=== PATIENT | male | born 1970 | race Caucasian/White ===

== ENCOUNTER 2024-07-04 11:58 | Outpatient (CLI) | payer OTHER, SELFPAY ==
--- OUTSIDE RECORDS SUMMARY | 2024-07-04 12:09 | XMS_ITS | Data Portability ---
Author Organization [place] [facility] [employer], Main Office Address [address] [place] [address] Assessment No assessment recorded. Plan of Treatment Reminders Order Date Submit Date Provider Last Modified By Organization Details Last Modified Time Details Appointments None recorded. Lab lipoprotein a, qn, serum 2024 [facility], [address], [place], [address], 5 17:18:27 PSA, serum or plasma 2023 [facility], [address] [place], [address], 4 17:18:06 lipid panel, serum 2023 [facility], [address] [place], [address], 4 15:36:41 CMP, serum or plasma 2023 [facility], [address] [place], [address], 4 15:36:41 CBC w/ auto diff 2023 [facility], [address] [place], [address], 4 15:47:53 TSH, serum or plasma 2023 [facility], [address] [place], [address], 4 15:36:41 T4, free, serum 2023 024 [email or web address] [facility], [address] [place], [address], 4 16:23:15 testosteron e, free + total, serum 2023 024 [email or web address] [facility], [address] [place], [address], 4 16:32:00 T4, free, serum 2023 024 [facility], [address] [place], [address], 4 16:32:00 TSH, serum or plasma 2023 024 [facility], [address] [place], [address], 4 16:32:00 lipid panel, serum 2023 024 [email or web address] [facility], [address] [place], [address], 4 16:31:59 CMP, serum or plasma 2023 024 [email or web address] [facility], [address] [place], [address], 4 16:32:00 CBC w/ auto diff 2023 024 [email or web address] [facility], [address] [place], [address], 4 16:32:00 Referral None recorded. Procedures None recorded. Surgeries None recorded. Imaging None recorded. Medication Orders None recorded. Patient TargetsNo targets recorded. Patient Instructions Encounter Date Encounter Id Patient Instructions Last Modified By Organization Details Last Modified Time 06/08/2023 [id number] risk assessment* Not availabl e 06/08/2023 16:37:28 INFLUENZA VACCIN E Recommended today, but patient declined TD/TDAP Recommended today, patient declined Ordered P atient will get at local pharmacy/health department PNEUMONIA VACCINE Ordered Recommende d today, patient declined Patient will get at local pharmacy/health department Recomme nded at age 66 SHINGLES Ordered Recommende d today, patient declined Patient will get at local pharmacy/health department PSA COLORECTAL SCREENING No screening necessary patient is up to date DEPRESSION SCREENING Negative BMI Overweight continue your current weight loss efforts try to lose 5% of your body weight try to lose 10% of your body weight NUTRITION PHYSICAL ACTIVITY Need more exercise/physical activity ALCOHOL USE No alcohol use Occasional/Soc ial Use TOBACCO USE non smoker LUNG CANCER SCREENING Non Smoker-not indicated SEXUALLY ACTIVE HEPATITIS C SCREENING Not indicated GLUCOSE SCREENING LIPID SCREENING [email or web address] Not available 06/08/2023 16:29:53 Wellness evaluation risk assessment stable. Follow-up for hyperlipidemia, hypothyroidism and anxiety disorder all clinically stable. Will check blood work consisting of CBC, CMP, lipid, thyroid and PSA. Continue on current Rx. Will also check a testosterone level since the patient has complaints some just generalized feeling of fatigue and weakness. Follow-up in approximately six months Next Appointment: 6 Months Approximate Date: 12/05/2023 Portions of the record may have been created with voice recognition software. Occasional wrong-word or czhfc-s-prkv substitutions may have occurred due to the inherent limitations of voice recognition software. Read the chart carefully and recognize, using context, where substitutions have occurred. [email or web address] Not available 06/08/2023 16:37:11 12/06/2023 [id number] Hypothyroidism, hyperlipidemia, anxiety disorder and obesity class two all clinically stable. Will continue on current Rx check blood work consisting of CBC, CMP, lipid, thyroid and PSA. Follow-up in six months Follow Up: 6 Months Approximate Date: 06/03/2024 Portions of the record may have been created with voice recognition software. Occasional wrong-word or xkshu-g-bmbc substitutions may have occurred due to the inherent limitations of voice recognition software. Read the chart carefully and recognize, using context, where substitutions have occurred. [email or web address] Not available 12/06/2023 15:11:20 06/05/2024 [id number] Follow-up anxiet y disorder, hyperlipidemia, hypothyroidism and obesity class two all clinically stable. Had blood work on last visit which looked adequate. Thyroid was within normal limits as was the lipid panel. PSA was normal. Will continue on current Rx at this time. Will recheck back in six months. Follow Up: 6 Months Approximate Date: 12/02/2024 Portions of record are template driven. When necessary additional context will be provided. Additionally some portions have been created with voice recognition software. Occasional wrong-word or zcmok-h-zlke substitutions may have occurred due to the inherent limitations of voice recognition software. Read the chart carefully and recognize, using context, where substitutions may have occurred. Created: Rojelio Torres M.D. 06.05.2024 04:26 PM [email or web address] Not available 06/05/2024 17:26:26 Reason for Referral None Reported. Results Created Date Observation Date Name Description Value Unit Range Abnormal Flag Note LastModifiedBy Organization Detail LastModifiedTime 06/20/19 25 06/19/2024 XR, chest No observ ation record ed. [email or web address] [address], [address], 06/20/2024 09:51:46 06/21/19 25 06/20/2024 pharm acolo gic nucle ar stres s test No observ ation record ed. [email or web address] [place] [address] [address] [facility], [place], [address], 06/20/2024 15:55:15 06/21/19 25 06/20/2024 exerc ise stres s test No observ ation record ed. [address] [place] [address], [address], 06/20/2024 17:02:38 Result Notes None recorded. Problems Name Problem SNOMED Code Status Onset Date Resolution Date Notes Provider Name and Address Organization Details Recorded Time Disorder of shoulder 898865732 Active Not Available [facility] 3 13:52:48 Anxiety disorder 769592699 Active 2021 Not Available [facility] 3 13:52:48 Synovitis and tenosynovi tis 038279917 Active Not Available [facility] 3 13:52:48 Disorder of prostate 40644128 Active 2022 Not Available [facility] 3 13:52:48 Hypothyroi dism 82115420 Active 2020 Not Available [facility] 3 13:52:48 Hyperlipid emia 08711121 Active 2021 Not Available [facility] 3 13:52:48 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 Procedures Surgical History None recorded. Imaging Results Imaging Date Name Status LastModified by Organization Details LastModified Time 06/19/2024 XR, chest completed [address] [place] [address], [address], 06/20/2024 09:51:46 06/20/2024 pharmacologic nuclear stress test completed [address] [place] [address], [address], 06/20/2024 15:55:15 06/20/2024 exercise stress test completed [address], [address], 06/20/2024 17:02:38 Procedure Notes None recorded. Medical Equipment None Reported. Medications Name Sig Start Date Stop Date Status Note LastModified by Organization Details LastModified Time venlafaxine ER 150 mg capsule,ext ended release 24 hr TAKE 1 CAPSULE BY MOUTH ONCE DAILY active Not Available Not Available No t Available ciprofloxac in 500 mg tablet TAKE 1 TABLET BY MOUTH ONCE DAILY 06/07 completed Not Available Not Available Not Available levothyroxi ne 100 mcg tablet TAKE 1 TABLET BY MOUTH ONCE DAILY active Not Available Not Available No t Available simvastatin 20 mg tablet TAKE 1 TABLET BY MOUTH ONCE DAILY active Not Available Not Available No t Available aspirin 81 mg chewable tablet CHEW AND SWALLOW 1 TABLET BY MOUTH ONCE DAILY AT 8 AM active Not Available Not Available No t Available scopolamine 1 mg over 3 days transdermal patch APPLY 1 PATCH TOPICALLY EVERY 72 HOURS 06/05 completed Not Available Not Available Not Available bupropion HCl 150 mg tablet,12 hr sustained-r elease(smok ing deterrent) 09/10 completed Not Available Not Available Not Available Vitals Date Recorded Body mass index (BMI) Body height Oxygen saturation Oxygen saturation in Arterial blood by Pulse oximetry Heart rate Body temperature Body weight Systolic blood pressure Diastolic blood pressure Provider Name and Address Organization Details Last Updated DateTime 3 38.3 kg/m2 185.42 cm 98 % 98 % 74 /min 96.5 [degF] 481236. 79 g 130 mm[Hg] 80 mm[Hg] Not Available [facility] 3 13:52:25 Date Recorded Body height Body mass index (BMI) Body weight Heart rate Body temperature Oxygen saturation Oxygen saturation in Arterial blood by Pulse oximetry Systolic blood pressure Diastolic blood pressure Provider Name and Address Organization Details Last Updated DateTime 4 185.42 cm 38.3 kg/m2 739660. 79 g 89 /min 97 [degF] 96 % 96 % 122 mm[Hg] 78 mm[Hg] Zari ELKINS [facility] 4 16:24:38 Date Recorded Body height Body mass index (BMI) Body weight Heart rate Body temperature Oxygen saturation Oxygen saturation in Arterial blood by Pulse oximetry Systolic blood pressure Diastolic blood pressure Provider Name and Address Organization Details Last Updated DateTime 4 185.42 cm 38.1 kg/m2 597972. 19 g 75 /min 97 [degF] 97 % 97 % 124 mm[Hg] 80 mm[Hg] PJ Colon [facility] 4 14:57:54 Date Recorded Body height Body mass index (BMI) Body weight Heart rate Body temperature Oxygen saturation Oxygen saturation in Arterial blood by Pulse oximetry Systolic blood pressure Diastolic blood pressure Provider Name and Address Organization Details Last Updated DateTime 5 185.42 cm 38.5 kg/m2 918647. 97 g 94 /min 97 [degF] 98 % 98 % 130 mm[Hg] 68 mm[Hg] Zari Romero [facility] [employer] [facility] 5 17:18:39 Date Recorded Body height Body mass index (BMI) Body weight Heart rate Oxygen saturation Oxygen saturation in Arterial blood by Pulse oximetry Systolic blood pressure Diastolic blood pressure Provider Name and Address Organization Details Last Updated DateTime 5 185.42 cm 37.6 kg/m2 680150. 83 g 78 /min 97 % 97 % 116 mm[Hg] 74 mm[Hg] Abbie Batista CMA [facility] [employer] [facility] 5 17:01:53 Social History None recorded. Functional Status None recorded. Mental Status None recorded. Family History Nothing Reported Notes:Mother in 70' s from dementia Father 35 from complications of MS and DVT with probable pulmonary embolus. Two sisters both living one has a GI malignancy. No brothers Medical History Condition Response NERVE DISEASE N BLINDNESS N RHEUMATIC FEVER N KIDNEY STONES N BLADDER PROBLEMS N MRSA N OTHER # 1 N POLIO N LUNG DISEASE/DISORDER N HISTORY OF DRUG ABUSE N RADIATION / CHEMOTHERAPY N COPD N Other # 2 N BLOOD DISEASES N EAR OR HEARING PROBLEMS N MUMPS N SHINGLES N BOWEL PROBLEMS N DEPRESSION (INCLUDING POST ) N STROKE/TIA N ULCERS N BENIGN PROSTATIC HYPERPLASIA N MEASLES N HYPOTENSION N MYOCARDIAL INFARCTION N OBESITY N GERD/NAUSEA N ANEURYSM N URINARY/BLADDER/KIDNEY PROBLEMS N CORONARY ARTERY DISEASE (CAD) N ADDICTION CONCERNS N ENDOMETRIOSIS N Impotence N USE OF BLOOD THINNERS N SKIN PROBLEMS N GASTROINTESTINAL DISORDER N PERIPHERAL VASCULAR DISEASE N MUSCLE,JOINT OR BONE PROBLEMS N GASTROINTESTINAL BLEEDING N BLOOD CLOTS N ASTHMA N CATARACTS N ERECTILE DYSFUNCTION N VARICOSITIES N GI PROBLEMS N Low Testosterone N INFERTILITY N AIDS/HIV N CHEMOTHERAPY / RADIATION N LIVER DISEASE N MALE HYPOGONADISM N HYPERTENSION N Deficiency N TOURETTE'S N ANXIETY DISORDER Y BLOOD TRANSFUSION N ANEMIA/BLOOD DISORDER N CHRONIC EAR INFECTIONS N BRONCHITIS N TUBERCULOSIS N GLAUCOMA N FOOT PROBLEM N DIVERTICULITIS N CHICKENPOX N SLEEP APNEA N INFECTIOUS DISEASE N HEART ARRHYTHMIA N PROSTATE N INSOMNIA N HIGH CHOLESTEROL / HYPERLIPIDEMIA Y HYPERTHYROIDISM N EYE PROBLEMS N EDEMA N CHRONIC PAIN SYNDROME N HYPOTHYROIDISM Y CAROTID BLOCKAGE N CONSTIPATION N BACK / NECK PROBLEMS Y HAVE YOU BEEN HOSPITALIZED OR SEEN IN [facility] ER IN THE PAST YEAR ? N ATHEROSCLEROSIS N BREAST PROBLEMS N DIALYSIS N ECZEMA N OSTEOPOROSIS N ARTHRITIS N NO SIGNIFICANT PAST MEDICAL HISTORY N APPENDICITIS N DIABETES, TYPE N BAD TEETH N ENT N HEARTBURN / REFLUX N AUTISM SPECTRUM DISORDER (ASD) N HEPATITIS / LIVER DISEASE N GOUT N SLEEP DISORDER N ALZHEIMER'S DISEASE N Brain Problems N HERPES N DEMENTIA N HEADACHES/MIGRAINES N SEIZURES/EPILEPSY N VASCULAR DISEASE N PACEMAKER N Blood Disorder N DIZZINESS N HEART DISEASE/HEART PROBLEMS N KIDNEY DISEASE N MULTIPLE SCLEROSIS N CARDIAC ARRHYTHMIA N CANCER: SPECIFY N ATRIAL FIBRILLATION N Gall Stones N PULMONARY EMBOLISM N AUTOIMMUNE DISEASE N Past Encounters Encounter ID Performer Location Encounter Start Date Encounter Closed Date Diagnosis/Indication Diagnosis SNOMED-CT Code Diagnosis ICD10 Code Diagnosis Note [id number] Rojelio Torres MD [facility] Internal Med [place] [address] [place] [address] [place] [address] 09/10/2020 00:00:00 09/10/2020 17:18:59 [id number] Rojelio Torres MD [facility] Internal Med [place] [address] [place] [address] [place] [address] 09/09/2021 00:00:00 09/09/2021 16:01:34 [id number] Rojelio Torres MD [facility] Internal Med [place] [address] [place] [address] [place] [address] 03/10/2022 00:00:00 03/10/2022 16:37:06 [id number] Rojelio Torres MD [facility] Internal Med [place] [address] [place] [address] [place] [address] 06/08/2023 16:15:52 06/08/2023 16:42:15 Adult health examination 735256997 Z00.00 Depression screening 171 576007 Z13.31 Hyperlipidemia 76509256 E78.5 Anxiety disorder 5036958 06 F41.9 Hypothyroidism 42061172 E03.9 Testicular hypofunction 502957142 E29.1 [id number] Rojelio Torres MD [facility] Internal Med [facility] [address] [place] [address] 12/06/2023 14:51:58 12/06/2023 15:14:27 Hypothyroidism 42299243 E03.9 Hyperlipidemia 88328429 E78.5 Anxiety disorder 06 F41.9 Obese class II 608112470 1 02433 E66.812 Disorder of prostate 302 [address] N42.9 [id number] Rojelio Torres MD [facility] Primary Care [facility] [address] [facility] [address] [place] [address] 06/05/2024 17:10:49 06/05/2024 17:30:14 Anxiety disorder 886360778 F41.9 Hyperlipidemia 73595481 E78.5 Hypothyroidism 96147210 E03.9 Obese class II 757552736 1 [address]372 E66.760 [id number] Rojelio Torres MD [facility] Internal Med [address] [facility] [address] [place] [address] 07/02/2024 16:52:33 07/02/2024 17:27:34 Hyperlipidemia 90573475 E78.5 Hypothyroidism 75225350 E03.9 Atypical chest pain 1025 98642 R07.89 Health Concerns Section Related Observation LastModified by Organization Detai ls LastModified Time None Recorded Concern Status LastModified by Organization Details LastModified Time None Recorded Advance Directives Directive None Recorded Payers Encounter Date Sequence Insurance Name Policy Number Policy Reyes Covered Member ID Reyes Member ID Guarantor Name 06/08/2023 1 [employer] ([employer]DE[employer]) [id number] Alysa Yadav [id number] Ernesto Yadav 12/06/2023 1 [employer] ([employer]) [id number] Alysa Yadav [id number] Ernesto Yadav 06/05/2024 1 [employer] (INDEMN[employer]) [id number] Alysa Yadav [id number] Ernesto Yadav 07/02/2024 1 [employer] (INDMELISSA) [id number] Alysa Yadav [id number] Ernesto Yadav Notes Date Note Type Note Provider Name and Address Organization Details Recorded Time 4 text/html Patient Name: Ernesto Parikh Of Service: Sunday ( 06.08.2023 ): 1970 Age: 52 Vital Signs:Blood Pressure: Sitting Rt. Arm 122/78Pulse: Sitting 89 /min and RegularRespiratory Rate: 12Height 73 in or 1.9 mWeight 290 lb or 131.5 kgBMI 38.3Temperature: 97 F or 36.1 CPulse Oximetry: 96 % at rest on no oxygen Chief Complaint: Addressed in HPI Problems or conditions discussed in the HPI were the only ones reviewed during the encounter.Only social and family history addressed in the HPI were reviewed during this encounter. Attendant(s): NoneConstitutional and Systemic Symptoms:none Medication Reconciliation: from medication list. History of Present Illness In for a well patient check up. Last well patient evaluation was approximately one year. No interval complaints of any new major medical problems. No hx of any chest pain, shortness of breath, nausea, vomiting, diarrhea or constitutional symptoms.PSA orderedColonoscopy or Cologuard: not dueImmunizations Up To Date or refuses to takeNo Significant Change In Family HxFall Risk normalDepression Score: 0Hearing normalVisual normalReviewed Smoking and Drug HistoryReviewed Immunization HistoryInstructed on importance of weight on diabetes, heart and other diseases aggravated by obesity.Instructed on importance of weight on diabetes, heart and other diseases aggravated by obesity. #1. Type II Hypercholesterolaemia: Currently taking medication and tolerating well. No interval complaints of any muscle pain or arthralgia. No significant liver changes with medications. Last lipid panel: fair control. Therapy reviewed regarding treatment of cholesterol management and include diet. #2. Hx of hypothyroidism currently stable. Heat intolerance: no Fatigue: no Weight gain: no Difficulty concentrating: no Muscle Symptoms: none Skin Texture: normal Skin Color: normal Currently taking synthroid. #3. Anxiety Disorder: History of anxiety disorder. There has been no panic attacks. No interval complaints of any vegetative or other signs of depression. Taking Effexor Xr. Discussed possibility of decreasing and weaning off medication. Feels that current regimen is working fine and wishes not to change the current treatment regimen. Medication not causing any sedation or cognitive dysfunction and there is no contraindication to continue current therapy. #4. Hx of obesity. Currently Class 2 Obesity BMI 35-39.99. Has tried numerous dietary support and supplements with no benefit. Instructed on the health consequences of the obese status particularly cancer - diabetes and heart disease. Discussed new modalities of weight loss including GLP-1 medications that are used to treat diabetes. Potential candidate for bariatric surgery: Yes but does no wish to pursue. Wishes to be evaluated by Dietary: No and was offered to be evaluated and instructed by clinical data manager on weight loss diet. Active Medication ListZocor 20 MG (TABLET - ORAL) One DailySynthroid 0.1 MG (TABLET - ORAL) One DailyEffexor Xr 150 MG (CAPSULE, EXTENDED RELEASE - ORAL) Daily Adverse Drug Reactions ReviewedVersed Mean Social HistorySmokes 1/3 pack daily since 2006Drinks socially5 examples Construction Family HistoryMother in 70's from dementiaFather 35 from complications of MS and DVT with probable pulmonary embolus.Two sisters both living one has a GI malignancy.No brothers Rojelio Torres MD [address] [facility] [address], [place], [address], [facility] [employer] 06/08/2023 16:37:32 4 text/html Patient Name: Ernesto Parikh Of Service: November ( 12.06.2023 ): 1970 Age: 53 Vital Signs:Blood Pressure: Sitting Rt. Arm 124/80Pulse: Sitting 75 /min and RegularRespiratory Rate: 16Height 73 in or 1.9 mWeight 289 lb or 131.1 kgBMI 38.1Temperature: 97 F or 36.1 CPulse Oximetry: 97 % at rest on no oxygen Chief Complaint: Addressed in HPI Problems or conditions discussed in the HPI were the only ones reviewed during the encounter.Only social and family history addressed in the HPI were reviewed during this encounter. Attendant(s): NoneConstitutional and Systemic Symptoms:none Medication Reconciliation: from medication list. History of Present Illness #1. Hx of hypothyroidism currently stable. Heat intolerance: no Fatigue: no Weight gain: no Difficulty concentrating: no Muscle Symptoms: none Skin Texture: normal Skin Color: normal Currently taking synthroid. #2. Type II Hypercholesterolaemia: Currently taking medication and tolerating well. No interval complaints of any muscle pain or arthralgia. No significant liver changes with medications. Last lipid panel: fair control. Therapy reviewed regarding treatment of cholesterol management and include diet and Zocor. #3. Anxiety Disorder: History of anxiety disorder. There has been no panic attacks. No interval complaints of any vegetative or other signs of depression. Taking Effexor Xr. Discussed possibility of decreasing and weaning off medication. Feels that current regimen is working fine and wishes not to change the current treatment regimen. Medication not causing any sedation or cognitive dysfunction and there is no contraindication to continue current therapy. #4. Hx of obesity. Currently Class 2 Obesity BMI 35-39.99. Has tried numerous dietary support and supplements with no benefit. Instructed on the health consequences of the obese status particularly cancer - diabetes and heart disease. Discussed other modalities of weight loss no . Potential candidate for bariatric surgery: No. Wishes to be evaluated by Dietary: No and was offered to be evaluated and instructed by clinical data manager on weight loss diet. Active Medication ListZocor 20 MG (TABLET - ORAL) One DailySynthroid 0.1 MG (TABLET - ORAL) One DailyEffexor Xr 150 MG (CAPSULE, EXTENDED RELEASE - ORAL) Daily Adverse Drug Reactions ReviewedVersed Mean Social HistorySmokes 1/3 pack daily since 2006Drinks socially5 examples Construction Family HistoryMother in 70's from dementiaFather 35 from complications of MS and DVT with probable pulmonary embolus.Two sisters both living one has a GI malignancy.No brothers Rojelio Torres MD [address] [facility], [facility] [address], [place], [address], [place] [facility] [employer] 12/06/2023 15:11:38 5 text/html Patient Name: Ernesto Parikh Of Service: May ( 06.05.2024 ): 1970 Age: 53 There has been approximately a 3 lb weight gain since 12/06/2023. This represents approximately a 1.0% change in weight. Weight change attributable to lifestyle changes. Vital Signs:Blood Pressure: Sitting Rt. Arm 130/68Pulse: Sitting 04 /min and RegularRespiratory Rate: 16Height 73 in or 1.9 mWeight 292 lb or 132.4 kgBMI 38.5Temperature: 97 F or 36.1 CPulse Oximetry: 98 % at rest on no oxygen Chief Complaint: Addressed in HPI Problems or conditions discussed in the HPI were the only ones reviewed during the encounter.Only social and family history addressed in the HPI were reviewed during this encounter. Attendant(s): NoneConstitutional and Systemic Symptoms:none Medication Reconciliation: from medication list. History of Present Illness #1. Anxiety Disorder: History of anxiety disorder. There has been no panic attacks. No interval complaints of any vegetative or other signs of depression. Taking Effexor Xr. Discussed possibility of decreasing and weaning off medication. Feels that current regimen is working fine and wishes not to change the current treatment regimen. Medication not causing any sedation or cognitive dysfunction and there is no contraindication to continue current therapy. #2. Type II Hypercholesterolaemia: Currently taking medication and tolerating well. No interval complaints of any muscle pain or arthralgia. No significant liver changes with medications. Last lipid panel: fair control. Therapy reviewed regarding treatment of cholesterol management and include diet and Zocor. #3. Hx of hypothyroidism currently stable. Heat intolerance: no Fatigue: no Weight gain: no Difficulty concentrating: no Muscle Symptoms: none Skin Texture: normal Skin Color: normal Currently taking synthroid. #4. Hx of obesity. Currently Class 2 Obesity BMI 35-39.99. Has tried numerous dietary support and supplements with no benefit. Instructed on the health consequences of the obese status particularly cancer - diabetes and heart disease. Discussed other modalities of weight loss no . Potential candidate for bariatric surgery: Yes but does no wish to pursue. Wishes to be evaluated by Dietary: No and was offered to be evaluated and instructed by clinical data manager on weight loss diet. Active Medication ListZocor 20 MG (TABLET - ORAL) One DailySynthroid 0.1 MG (TABLET - ORAL) One DailyEffexor Xr 150 MG (CAPSULE, EXTENDED RELEASE - ORAL) Daily Adverse Drug Reactions ReviewedVersed Mean Social HistorySmokes 1/3 pack daily since 2006Drinks sociallyWorks Construction Family HistoryMother in 70's from dementiaFather 35 from complications of MS and DVT with probable pulmonary embolus.Two sisters both living one has a GI malignancy.No brothers Rojelio Torres MD [address] [facility], [address], [place], [address], [facility] [employer] [facility] 06/05/2024 17:26:43 5 text/html Patient Name: Ernesto Parikh Of Service: Sunday ( 07.02.2024 ): 1970 Age: 53 There has been approximately a 7 lb weight loss since 06/05/2024. This represents approximately a 2.4% change in weight. Weight change attributable to lifestyle changes. Vital Signs:Blood Pressure: Sitting Rt. Arm 116/74Pulse: Sitting 78 /min and RegularRespiratory Rate: 16Height 61 in or 1.5 mWeight 285 lb or 129.3 kgBMI 53.8 Chief Complaint: Addressed in HPI Problems or conditions discussed in the HPI were the only ones reviewed during the encounter.Only social and family history addressed in the HPI were reviewed during this encounter. Attendant(s): WifeConstitutional and Systemic Symptoms:none Medication Reconciliation: from medication list. [id number]: Pharmacological stress test normal myocardial perfusion at rest and during stress. Left ventricular ejection fraction measuring it is greater than 70%. No definite reversible or fixed perfusion defects noted. History of Present Illness #1. Several episodes of typical chest pain. The most recent which cause some hospitalization for 36 hours. At that time developed severe substernal chest pain described as like a knife going through the chest compressing his chest. Associated with diaphoresis some shortness of breath. No electrocardiographic or enzymatic changes were noted. Had a pharmacological stress test which was negative. No other systemic complaints although has a family history of cardiac problems with his father of young age from complications possibly of rheumatic heart disease and pulmonary embolism. No interval complaints of any new problems otherwise.: #2. Type II Hypercholesterolaemia: Currently taking medication and tolerating well. No interval complaints of any muscle pain or arthralgia. No significant liver changes with medications. Last lipid panel: excellent control. Therapy reviewed regarding treatment of cholesterol management and include diet and Zocor. #3. Hx of hypothyroidism currently stable. Heat intolerance: no Fatigue: no Weight gain: no Difficulty concentrating: no Muscle Symptoms: none Skin Texture: normal Skin Color: normal Currently taking synthroid. Active Medication ListZocor 20 MG (TABLET - ORAL) One DailySynthroid 0.1 MG (TABLET - ORAL) One DailyEffexor Xr 150 MG (CAPSULE, EXTENDED RELEASE - ORAL) DailyAspirin 81 mg dialy Adverse Drug Reactions ReviewedVersed Mean Social HistorySmokes 1/3 pack daily since 2006Drinks socially5 [employer] Family HistoryMother in 70's from dementiaFather 35 from complications of MS and DVT with probable pulmonary embolus.Two sisters both living one has a GI malignancy.No brothers Rojelio Torres MD [address] [facility], [facility] [address], [place], [address], [facility] [employer] [facility] 07/02/2024 17:18:11
== END 2024-07-04 11:59 | disposition home or self-care (01) ==
PROVIDERS: PCP Internal Medicine; Visit Provider Internal Medicine
DX: R07.89 Other chest pain (principal); E66.9 Obesity, unspecified; E78.5 Hyperlipidemia, unspecified; E03.9 Hypothyroidism, unspecified
CPT/HCPCS: 36415; 83695

== ENCOUNTER 2025-02-24 07:45 | Outpatient (CLI) | payer OTHER, SELFPAY ==
--- OUTSIDE RECORDS SUMMARY | 2025-02-24 07:49 | XMS_ITS | Data Portability ---
Author Organization [place] - [facility] [employer], Main Office Address [address] [place] [address] Assessment No assessment recorded. Plan of Treatment Reminders Order Date Submit Date Provider Last Modified By Organization Details Last Modified Time Details Appointments None recorded. Lab PSA, serum or plasma 2024 025 [facility], [address], [place], [address], 5 10:11:45 lipid panel, serum 2024 025 [id number] [facility], [address], [place], [address], 5 10:11:45 CMP, serum or plasma 2024 025 [facility], [address], [place], [address], 5 10:11:45 CBC w/ auto diff 2024 025 [id number] [facility], [address], [place], [address], 5 10:11:45 TSH, serum or plasma 2024 025 [id number] [facility], [address], [place], [address], 5 10:11:45 T4, free, serum 2024 025 [id number] [facility], [address], [place], [address], 5 10:11:45 lipoprotein a, qn, serum 2024 025 [facility], [address] [facility], [place], [address], 5 08:20:42 PSA, serum or plasma 2023 [facility], [address] [place], [address], 4 17:18:06 lipid panel, serum 2023 [facility], [address] [place], [address], 4 15:36:41 CMP, serum or plasma 2023 [facility], [address] [place], [address], 4 15:36:41 CBC w/ auto diff 2023 [facility], [address] [place], [address], 4 15:47:53 TSH, serum or plasma 2023 024 [facility], [address] [place], [address], 4 15:36:41 T4, free, serum [id number] Out[facility], [address] [place], [address], 4 16:23:15 testosteron e, free + total, serum [id number] [facility], [address] [place], [address], 4 16:32:00 T4, free, serum [address] Outpatient Lab, [address] [place], [address], 16:32:00 TSH, serum or plasma [id number] [place] [address] Outpatient Lab, [address] [place], [address], 16:32:00 lipid panel, serum [id number] [place] [address] Outpatient Lab, [address] [place], [address], 16:31:59 CMP, serum or plasma [id number] [place] [address] Lab, [address] [place], [address], 16:32:00 CBC w/ auto diff [id number] [place] [address] Outpatient Lab, [address] [place], [address], 16:32:00 Referral None recorded. Procedures None recorded. Surgeries None recorded. Imaging None recorded. Medication Orders None recorded. Patient TargetsNo targets recorded. Patient Instructions Encounter Date Encounter Id Patient Instructions Last Modified By Organization Details Last Modified Time 06/08/2023 [id number] risk assessment* [email or web address] Not availabl e 06/08/2023 16:37:28 INFLUENZA VACCIN E Recommended today, but patient declined TD/TDAP Patient will get at local pharmacy/health department PNEUMONIA VACCINE Recommended at age 66 SHINGLES Patient will get at local pharmacy/health department PSA recommended COLORECTAL SCREENING No screening necessary patient is up to date DEPRESSION SCREENING Negative BMI Overweight try to lose 10% of your body weight NUTRITION Eat Heart Healthy Diet PHYSICAL ACTIVITY Need more exercise/physical activity ALCOHOL USE Occasional/Social Use TOBACCO USE non smoker LUNG CANCER SCREENING Non Smoker-not indicated SEXUALLY ACTIVE HEPATITIS C SCREENING Not indicated GLUCOSE SCREENING recommended LIPID SCREENING recommended [email or web address] Not available 06/08/2023 16:29:53 Wellness evaluation risk [...] with voice recognition software. Occasional wrong-word or s ound-a-like substitutions may have occurred due to the inherent limitations of voice recognition software. Read the chart carefully and recognize, using context, where substitutions have occurred. [email or web address] Not available 06/08/2023 16:37:11 12/06/2023 [id number] Hypothyroidism, hyperlipidemia, anxiety disorder and obesity class two all clinically stable. Will continue on current Rx check blood work consisting of CBC, CMP, lipid, thyroid and PSA. Follow-up in six months Follow Up: 6 Months Approximate Date: 06/03/2024 Portions of the record may have been created with voice recognition software. Occasional wrong-word or s ound-a-like substitutions may have occurred due to the inherent limitations of voice recognition software. Read the chart carefully and recognize, using context, where substitutions have occurred. [email or web address] Not available 12/06/2023 15:11:20 06/05/2024 [id number] Follow-up anxiet y disorder, hyperlipidemia, hypothyroidism and [...] with voice recognition software. Occasional wrong-word or s ound-a-like substitutions may have occurred due to the inherent limitations of voice recognition software. Read the chart carefully and recognize, using context, where substitutions may have occurred. Created: Rojelio Torres M.D. 06.05.2024 04:26 PM [email or web address] Not available 06/05/2024 17:26:26 Reason for Referral None Reported. Results Created Date Observation Date Name Description Value Unit Range Abnormal Flag Note LastModifiedBy Organization Detail LastModifiedTime 06/20/19 25 06/19/2024 XR, chest No observ ation record ed. [address], [place], [address], 06/20/2024 09:51:46 06/21/19 25 06/20/2024 pharm acolo gic nucle ar stres s test No observ ation record ed. [address], [place], [address], 06/20/2024 15:55:15 06/21/19 25 06/20/2024 exerc ise stres s test No observ ation record ed. [address], [place], [address], 06/20/2024 17:02:38 08/08/19 25 08/07/2024 US, echoc ardio gram, trans thora cic, compl ete, w/ color flow No observ ation record ed. [address], [place], [address], 08/07/2024 14:27:10 Result Notes None recorded. Problems Name Problem SNOMED Code Status Onset Date Resolution Date Notes Provider Name and Address Organization Details Recorded Time Disorder of shoulder 504684432 Active Not Available [facility] 3 13:52:48 Synovitis and tenosynovi tis 055254301 Active Not Available [facility] 3 13:52:48 Hypothyroi dism 95184510 Active 2020 Not Available [facility] 3 13:52:48 Anxiety disorder 385565935 Active 2021 Not Available [facility] 3 13:52:48 Hyperlipid emia 24816621 Active 2021 Not Available [facility] 3 13:52:48 Disorder of prostate 55433913 Active 2022 Not Available [facility] 3 13:52:48 Testicular hypofuncti on 548095967 Active 2023 Rojelio Torres MD [address], [place], [address] , [facility] 4 16:36:58 Motion sickness 20562067 Active 2023 Rojelio Torres MD [address], [address], [place], [address] , [facility] 4 12:30:44 Atypical chest pain 038089676 Active 2024 Rojelio Torres MD [address], [place], [address] , [facility] 5 17:11:19 Obstructiv e sleep apnea syndrome 72215154 Active 2024 Micki salazar, [facility] 5 11:41:57 Chronic back pain 033563679 Active 2024 Rojelio Torres MD [address], [address], [place], [address] , [facility] 5 17:35:38 Obese class I 1899041761998 07 Active 2024 Rojelio Torres MD [address], [place], [address] , [facility] 5 17:37:19 Obese class III 648103180 Active 2024 Rojelio Torres MD [address], [place], [address] , [facility] 5 17:37:33 Chronic pain 93572223 Active 2024 Micki salazar, [facility] 5 14:44:43 Problem Notes None recorded. Medical Equipment None Reported. [...] Not Available levothyroxi ne 100 mcg tablet Take 1 tablet by mouth once daily 2024 active Not Available Not Available Not Avai lable simvastatin 20 mg tablet Take 1 tablet by mouth once daily 2024 active Not Available Not Available Not Avai lable aspirin 81 mg chewable tablet CHEW AND [...] Available Not Available Vitals Date Recorded Body height Body mass index (BMI) Body weight Heart rate Body temperature Oxygen saturation Systolic And Diastolic Provider Name and Address Organization Details Last Updated DateTime 5 185.42 cm 38.5 kg/m2 991200. 97 g 94 /min 97 [degF] 98 % 130/68 mm[Hg] [facility] [employer] [facility] 5 17:18:39 Date Recorded Body height Body mass index (BMI) Body weight Heart rate Body temperature Oxygen saturation Systolic And Diastolic Provider Name and Address Organization Details Last Updated DateTime 4 185.42 cm 38.3 kg/m2 264314. 79 g 89 /min 97 [degF] 96 % 122/78 mm[Hg] Zari Dao [employer] [facility] [employer] [facility] 4 16:24:38 Date Recorded Body height Body mass index (BMI) Body weight Heart rate Oxygen saturation Systolic And Diastolic Provider Name and Address Organization Details Last Updated DateTime 5 185.42 cm 37.6 kg/m2 137211. 83 g 78 /min 97 % 116/74 mm[Hg] Abbie Batista CMA [employer] [facility] [employer] [facility] 5 17:01:53 Date Recorded Body height Body mass index (BMI) Body weight Heart rate Body temperature Oxygen saturation Systolic And Diastolic Provider Name and Address Organization Details Last Updated DateTime 4 185.42 cm 38.1 kg/m2 703806. 19 g 75 /min 97 [degF] 97 % 124/80 mm[Hg] PJ Colon [facility] [facility] [employer] [facility] 4 14:57:54 Date Recorded Body height Body mass index (BMI) Body weight Heart rate Body temperature Oxygen saturation Systolic And Diastolic Provider Name and Address Organization Details Last Updated DateTime 5 185.42 cm 38.3 kg/m2 561427. 79 g 78 /min 97.2 [degF] 95 % 118/68 mm[Hg] Zari Romero [employer] [facility] 5 17:21:59 Social History None recorded. Functional Status None [...] ARTERY DISEASE (CAD) N ADDICTION CONCERNS N Impotence N ENDOMETRIOSIS N USE OF BLOOD THINNERS N SKIN [...] GLAUCOMA N FOOT PROBLEM N DIVERTICULITIS N SLEEP APNEA N CHICKENPOX N INFECTIOUS DISEASE N PROSTATE N HEART ARRHYTHMIA N INSOMNIA N HIGH CHOLESTEROL / HYPERLIPIDEMIA Y EYE PROBLEMS N HYPERTHYROIDISM N EDEMA N CHRONIC PAIN SYNDROME N HYPOTHYROIDISM Y CONSTIPATION N CAROTID BLOCKAGE N BACK / NECK PROBLEMS Y HAVE YOU BEEN HOSPITALIZED OR SEEN IN [facility] IN THE PAST YEAR ? N ATHEROSCLEROSIS N BREAST PROBLEMS N DIALYSIS N ECZEMA N OSTEOPOROSIS N ARTHRITIS N NO SIGNIFICANT PAST MEDICAL HISTORY N APPENDICITIS N DIABETES, TYPE N BAD TEETH N ENT N HEARTBURN / REFLUX N AUTISM SPECTRUM DISORDER (ASD) N HEPATITIS / LIVER DISEASE N GOUT N SLEEP DISORDER N ALZHEIMER'S DISEASE N Brain Problems N DEMENTIA N HERPES N SEIZURES/EPILEPSY N HEADACHES/MIGRAINES N VASCULAR DISEASE N PACEMAKER N Blood Disorder N DIZZINESS N HEART DISEASE/HEART PROBLEMS N KIDNEY DISEASE N MULTIPLE SCLEROSIS N CANCER: SPECIFY N CARDIAC ARRHYTHMIA N ATRIAL FIBRILLATION N Gall Stones N PULMONARY EMBOLISM N AUTOIMMUNE DISEASE N Immunizations Vaccine Type Date Status Note Provider Nam e and Address Organization Details Recorded Time COVID-19, mRNA, LNP-S, PF, 100 mcg/0.5mL dose or 50 mcg/0.25mL dose 09/21/2020 completed Not Available [facility] 17:04:56 COVID-19, mRNA, LNP-S, PF, 100 mcg/0.5mL dose or 50 mcg/0.25mL dose 10/21/2020 completed Not Available [facility] 17:04:56 Tdap 07/05/2021 completed Not Available [facility] 01/08/2025 17:04:56 Past Encounters Encounter ID Performer Location Encounter Start Date Encounter Closed Date Diagnosis/Indication Diagnosis SNOMED-CT Code Diagnosis ICD10 Code Diagnosis IMO Codes Diagnosis Note [id number] Rojelio Torres MD [facility] Internal Med [place] [address] [address] [place] [address] 09/10/2020 00:00:00 09/10/2020 17:18:59 [id number] Rojelio Torres MD [facility] Internal Med [place] [address] [address] [place] [address] 09/09/2021 00:00:00 09/09/2021 16:01:34 [id number] Rojelio Torres MD [facility] Internal [place] [address] [place] [address] [place] [address] 03/10/2022 00:00:00 03/10/2022 16:37:06 [id number] Rojelio Torres MD [facility] Internal Med [place] [address] [address] [place] [address] 06/08/2023 16:15:52 06/08/2023 16:42:15 Adult health examination 347295005 Z00.00 Depression screening 171 638224 Z13.31 Hyperlipidemia 94685454 E78.5 Anxiety disorder 6108069 06 F41.9 Hypothyroidism 79553974 E03.9 Testicular hypofunction 535998551 E29.1 [id number] Rojelio Torres MD [facility] Internal Med [facility] [address] [place] [address] , [place] [address] 12/06/2023 14:51:58 12/06/2023 15:14:27 Hypothyroidism 70769150 E03.9 Hyperlipidemia 34326218 E78.5 Anxiety disorder F41.9 Obese class II 069966446 1 72339 E66.812 Disorder of prostate 302 82250 N42.9 [id number] Rojelio Torres MD [facility] Primary Care [facility] [address] [facility] [address] [place] [address] 06/05/2024 17:10:49 06/05/2024 17:30:14 Anxiety disorder 861085026 F41.9 Hyperlipidemia 17531918 E78.5 Hypothyroidism 84094148 E03.9 Obese class II 832142122 1 65859 E66.[id number] [facility] Internal Med [facility] [address] [address] 07/02/2024 16:52:33 07/02/2024 17:27:34 Hyperlipidemia 31570377 E78.5 Hypothyroidism 48154197 E03.9 Atypical chest pain 1025 76231 R07.89 [id number] Rojelio Torres MD [facility] Internal Med [address] [address] 01/08/2025 17:03:32 01/08/2025 17:47:55 Hypothyroidism 51941306 E03.9 Hyperlipidemia 71811265 E78.5 Anxiety disorder 06 F41.9 Obstructiv e sleep apnea syndrome 93590240 G47.33 882847 Chronic back pain 047823 002 M54.9 G89.29 87857507 Obese class III 27130735 5 E66.813 3233503376 Disorder of prostate 302 80752 N42.9 Health Concerns Section Related Observation LastModified by Organization Detai ls LastModified Time None Recorded Concern Status LastModified by Organization Details LastModified Time None Recorded Advance Directives Directive None Recorded Payers Insurance Date Sequence Insurance Name Policy Number Policy Reyes Covered Member ID Reyes Member ID Guarantor Name 01/07/2025 1 [employer] ([employer]) [id number] Alysa Yadav [id number] Ernesto Yadav Notes Date Note Type Note Provider Name and Address Organization Details Recorded Time 4 text/htm l Patient Name: Ernesto Parikh Of Service: Sunday [...] offered to be evaluated and instructed by healthcare market consultant on weight loss diet. Active Medication ListZocor 20 MG (TABLET - ORAL) One DailySynthroid 0.1 MG (TABLET - ORAL) One DailyEffexor Xr 150 MG (CAPSULE, EXTENDED RELEASE - ORAL) Daily Adverse Drug Reactions ReviewedVersed Mean Social HistorySmokes 1/3 pack daily since 2006[employer] Family HistoryMother in 70's from dementiaFather 35 from complications of MS and DVT with probable pulmonary embolus.Two sisters both living one has a GI malignancy.No brothers Rojelio Torres MD [address] [facility] [address], [place], [address], [place] [facility] [employer] 06/08/2023 16:37:32 4 text/htm l Patient Name: Ernesto Parikh Of Service: November [...] offered to be evaluated and instructed by healthcare market consultant on weight loss diet. Active Medication ListZocor 20 MG (TABLET - ORAL) One DailySynthroid 0.1 MG (TABLET - ORAL) One DailyEffexor Xr 150 MG (CAPSULE, EXTENDED RELEASE - ORAL) Daily Adverse Drug Reactions ReviewedVersed Mean Social HistorySmokes 1/3 pack daily since [employer] Family HistoryMother in 70's from dementiaFather 35 from complications of MS and DVT with probable pulmonary embolus.Two sisters both living one has a GI malignancy.No brothers Rojelio Torres MD [address] [facility], [facility] [address], [place], [address], [place] [facility] [employer] 12/06/2023 15:11:38 5 text/htm l Patient Name: Ernesto Parikh Of Service: May [...] offered to be evaluated and instructed by healthcare market consultant on weight loss diet. Active Medication ListZocor [...] GI malignancy.No brothers Rojelio Torres MD [address] [facility], [facility] [address], [place], [address], [facility] [employer] 06/05/2024 17:26:43 5 text/htm l Patient Name: Ernesto Parikh Of Service: Sunday [...] Systemic Symptoms:none Medication Reconciliation: from medication list. [id number]: Pharmacological stress test normal myocardial perfusion at [...] GI malignancy.No brothers Rojelio Torres MD [address] [facility], [facility] [address], [place], [address], [place] [facility] 07/02/2024 17:18:11 5 text/htm l Patient Name: Ernesto Parikh Of Service: December ( 01.08.2025 ): 1970 Age: 54 There has been approximately a 5 lb weight gain since 07/02/2024. This represents approximately a 1.8% change in weight. Weight change attributable to lifestyle changes. Vital Signs:Blood Pressure: Sitting Rt. Arm 118/68Pulse: Sitting 70 /min and RegularRespiratory Rate: 16Height 61 in or 1.5 mWeight 290 lb or 131.5 kgBMI 54.8Temperature: 97.2 F or 36.2 CPulse Oximetry: 97 % at rest on no oxygen Chief Complaint: Addressed in HPI Problems or conditions discussed in the HPI were the only ones reviewed during the encounter.Only social and family history addressed in the HPI were reviewed during this encounter. Attendants(s) + NoneConstitutional and Systemic Symptoms:none Medication Reconciliation: from medication list. [id number]: Pharmacological stress test normal myocardial perfusion at rest and during stress. Left ventricular ejection fraction measuring it is greater than 70%. No definite reversible or fixed perfusion defects noted. 08-07-2024: Echocardiogram estimated ejection fraction 55-60% and normal. No significant valvular abnormalities noted History of Present Illness In for a well patient check up. Last well patient evaluation was approximately one year. No interval complaints of any new major medical problems. No hx of any chest pain, shortness of breath, nausea, vomiting, diarrhea or constitutional symptoms.PSA orderedColonoscopy or Cologuard: not dueImmunizations Up To Date or refuses to takeNo Significant Change In Family HxFall Risk normalHearing normalVisual normalReviewed Smoking and Drug HistoryReviewed Immunization HistoryInstructed on importance of weight on diabetes, heart and other diseases aggravated by obesity.Instructed on importance of weight on diabetes, heart and other diseases aggravated by obesity. #1. Possible Sleep Apnea: Has physical characteristics and sleeping habits possible consistent with sleep apnea. Has a narrow posterior pharynx. Snores: most of the night. Feels like falling to sleep throughout the day. Dreaming: infrequencyEpworth Sleepiness ScaleSitting and ReadinWatching TV: 2Sitting Inactive in a Public Place: 3Passenger in a Car: 2Lying Down in Afternoon: 2Sitting and Talking to someone: 2Sitting quietly after lunch: 2In a car while stopped or drivinScore Interpretation: 16-24 You Excessively sleepySTOP-BANGSnores Loudly: yesTired or sleepy during daytime: yesObserved to stop breathing during sleep: yesPressure - HTN: noBMI > 35: yesAge > 50: yesNeck Circumference > 15 inches: yesGender: Male: : yes #2. Hx of hypothyroidism currently stable. Heat intolerance: no Fatigue: no Weight gain: no Difficulty concentrating: no Muscle Symptoms: none Skin Texture: normal Skin Color: normal Currently taking Synthroid. #3. Anxiety Disorder: History of anxiety disorder. [...] no contraindication to continue current therapy. #4. Chronic lower back pain with some radiation down into the buttock area. No focal neurological abnormalities are noted. Will set up for some physical therapy to see if there is any improvement.: #5. Hx of obesity. Currently Class 3 Obesity MT > 40. Has tried numerous dietary support and supplements with no benefit. Instructed on the health consequences of the obese status particularly cancer - diabetes and heart disease. Discussed other modalities of weight loss GLP-1 medications that are used to treat diabetes . Potential candidate for bariatric surgery: No. Wishes to be evaluated by Dietary: No and was offered to be evaluated and instructed by healthcare market consultant on weight loss diet. Wellness Evaluation PHQ-2 Score Last Two Weeks Last Two Weeks: 0: Not at all 1: Several Days 2: More than half 3: Almost Every day #1. Little interest or pleasure in doing things: Not At All :Score 0#2. Feeling down, depressed, or hopeless: Not At All :Score 0Minimal or no Depression 0Function Status Staging: No demonstrable functional decline Basic ADLS Ambulation: NormalGrooming: General Personal Hygiene NormalToiletry: Self SufficientDressing: Dresses Without AssistanceEating: Self Sufficient Instrumental ADLS Managing Finances YesManaging Health YesShopping YesPreparing Meals YesUsing Technology YesHouse Work YesTaking Care of Pets YesTaking Care Children YesTransportation Yes Additional Topics Advanced Directives: DeclinedLiving Will: DeclinedDiscussed: Weight LossCode Status: Full Code Additional Comments Topics listed or those only pertinent to the patient or care givers. Social and Physical Activities Drinking History: NoneExercise 20 Minutes per Week: Yes, some of timeDifficulty Driving Car: NoOther Problems:NoneSmoking History: Does not smokeCannabis History: Does Not Use Wellness Evaluation Complete Active Medication ListZocor 20 MG (TABLET - ORAL) One DailySynthroid 0.1 MG (TABLET - ORAL) One DailyEffexor Xr 150 MG (CAPSULE, EXTENDED RELEASE - ORAL) DailyAspirin 81 MG TABLET One Daily Adverse Drug Reactions ReviewedVersed Mean Social HistorySmokes 1/3 pack daily since 2006Drinks [employer] Family HistoryMother in 70's from dementiaFather 35 from complications of MS and DVT with probable pulmonary embolus.Two sisters both living one has a GI malignancy.No brothers Vaccination and Immunization(X) Shingrix Recommended(X) Influenza Recommended(X) Tetanus or TD Recommended(X) Covid or Booster RecommendedImmunizations and Vaccinations Discussed and Implemented if feasible In the Office. Else referred to pharmacies. Preventative Testing: (X) Due (?) Optional(X) 12/08/2023 PSA 0.5 12/07/2024( ) 10/28/2021 Colonoscopy ( 5 Years ) 10/28/2026Preventative Testing Discussed with Patient and Attendants Rojelio Torres MD [address] [facility], [facility] [address], [place], [address], [place] [facility] 01/08/2025 17:43:19
--- OUTSIDE RECORDS SUMMARY | 2025-02-24 07:49 | XMS_ITS | Continuity of Care Document ---
Author Organization [place] - [facility] Internal Med [facility] [address] [address] Assessment No assessment recorded. Plan of Treatment Reminders Order Date Submit Date Provider Last Modified By Organization Details Last Modified Time Details Appointments None recorded . Lab PSA, serum or plasma 01/09/20 [email or web address] [facility], [address], [place], [address], 5 10:11:45 lipid panel, serum 01/09/20 [facility], [address], [place], [address], 5 10:11:45 CMP, serum or plasma 01/09/20 [facility], [address] , [place], [address], 5 10:11:45 CBC w/ auto diff 01/09/20 [id number] [facility], [address], [place], [address], 5 10:11:45 TSH, serum or plasma 025 01/09/20 [facility], [address], [place], [address], 5 10:11:45 T4, free, serum 025 01/09/20 [email or web address] [facility], [address], [place], [address], 5 10:11:45 Referral None recorded . Procedures None recorded . Surgeries None recorded . Imaging None recorded . Medication Orders None recorded . Patient TargetsNo targets recorded. Patient InstructionsNo instructions recorded. Reason for Referral None Reported. Problems Name Problem SNOMED Code Status Onset Date Resolution Date Notes Provider Name and Address Organization Details Recorded Time Disorder of shoulder 562248001 Active Not Available [facility] 3 13:52:48 Synovitis and tenosynovi tis 889863232 Active Not Available [facility] 3 13:52:48 Hypothyroi dism 41543698 Active 2020 Not Available [facility] 3 13:52:48 Anxiety disorder 366327683 Active 2021 Not Available [facility] 3 13:52:48 Hyperlipid emia 76706799 Active 2021 Not Available [facility] 3 13:52:48 Disorder of prostate 32188406 Active 2022 Not Available [facility] 3 13:52:48 Testicular hypofuncti on 179762364 Active 2023 Rojelio Torres MD [address], [place], [address] , [employer] 4 16:36:58 Motion sickness 86562632 Active 2023 Rojelio Torres MD [address], [address], [place], [address] , [employer] 4 12:30:44 Atypical chest pain 283650893 Active 2024 Rojelio Torres MD [address], [place], [address] , [employer] [facility] [employer] 5 17:11:19 Obstructiv e sleep apnea syndrome 83903545 Active 2024 Micki salazar, [employer] [facility] 5 11:41:57 Chronic back pain 724250202 Active 2024 Rojelio Torres MD [address], [place], [address] , [facility] [employer] [facility] 17:35:38 Obese class I 4360560555590 07 Active 2024 Rojelio Torres MD [address] [facility], [facility] [address], [place], [address] , [facility] [employer] [facility] 17:37:19 Obese class III 247564556 Active 2024 Rojelio Torres MD [address] [facility], [facility] [address], [place], [address] , [facility] [employer] [facility] 17:37:33 Chronic pain 60641921 Active 2024 Micki salazar, [facility] [employer] [facility] 14:44:43 Problem Notes None recorded. Medical Equipment [...] and Address Organization Details Last Updated DateTime 185.42 cm 38.3 kg/m2 544921. 79 g 78 /min 97.2 [degF] 95 % 118/68 mm[Hg] Zari Romero [facility] [employer] [facility] 11/13/202 5 17:21:59 Social History None recorded. Functional [...] HAVE YOU BEEN HOSPITALIZED OR SEEN IN [facility] IN THE PAST YEAR ? N [...] 50 mcg/0.25mL dose 09/21/2020 completed Not Available [facility] 17:04:56 COVID-19, mRNA, LNP-S, PF, 100 mcg/0.5mL dose or 50 mcg/0.25mL dose 10/21/2020 completed Not Available [facility] 17:04:56 Tdap 07/05/2021 completed Not Available [facility] 01/08/2025 17:04:56 Past Encounters Encounter ID Performer Location Encounter Start Date Encounter Closed Date Diagnosis/Indication Diagnosis SNOMED-CT Code Diagnosis ICD10 Code Diagnosis IMO Codes Diagnosis Note [id number] Rojelio Torres MD [facility] [address] [facility] [address] [place] [address] 01/08/2025 17:03:32 01/08/2025 17:47:55 Hypothyroidism 43550368 E03.9 Hyperlipidemia 99153032 E78.5 Anxiety disorder 2110848 06 F41.9 Obstructiv e sleep apnea syndrome 72136036 G47.33 298250 Chronic back pain 610483 002 M54.9 G89.29 02281206 Obese class III 83132945 5 E66.813 0388001780 Disorder of prostate 302 [address] N42.9 Health Concerns Section Related Observation LastModified by Organization Detai ls LastModified Time None Recorded Concern Status LastModified by Organization Details LastModified Time None Recorded Payers Encounter Date Sequence Insurance Name Policy Number Policy Reyes Covered Member ID Reyes Member ID Guarantor Name 01/08/2025 1 [employer] (INDEMNITY) [id number] Alysa Yadav [id number] Ernesto Yadav Notes Date Note Type Note Provider Name and Address Organization Details Recorded Time 5 text/htm l Patient Name: Ernesto Parikh [...] Systemic Symptoms:none Medication Reconciliation: from medication list. [id number]: Pharmacological stress test normal myocardial perfusion at [...] Hx of obesity. Currently Class 3 Obesity ME > 40. Has tried numerous dietary support [...] offered to be evaluated and instructed by neurological physiotherapist on weight loss diet. Wellness Evaluation PHQ-2 [...] Patient and Attendants Rojelio Torres MD [address] [facility], [facility] [address], [place], [address], [place] [facility] [place] 01/08/2025 17:43:19
--- NOTE | 2025-03-27 09:24 | WPDSLEEPSTUD ---
Sleep Study Date of Study: 02/24/25 Ordering Provider: Rojelio Torres, Interpreting Physician: Felipa Hannah DO Sleep Study Type: Split Polysomnogram Height: 1.85 m Weight: 131.542 kg Body Mass Index: 38.2 Neck Circumference (inches): 17 [place]: 12 Reason for Sleep Study Excessive daytime sleepiness Sleep History The patient is a 54-year-old male that had a sleep study ordered by his primary care physician for evaluation of sleep apnea. The patient occasionally awakens from sleep short of breath. He occasionally awakens at night with heartburn, belching or cough. He constantly snores loudly enough that others complain. He constantly has trouble sleeping when he has a cold. He occasionally wakes up gasping for air throughout the night he frequently has breathing problems at night observed by himself or others. He frequently sweats excessively at night. He occasionally has heart palpitations or irregular heartbeats during the night. He frequently falls asleep during the day but never while driving. He denies cataplexy. He occasionally has trouble at school or work due to sleepiness. He occasionally feels unable to move while waking up or falling asleep. He occasionally experiences vivid dreamlike scenes upon awakening or falling asleep. He denies feeling afraid of going to sleep. He rarely has nightmares. He occasionally remembers his dreams. He occasionally has thoughts racing through his mind. He rarely feels sad or depressed. He frequently has anxiety. Occasionally has muscular tension. He denies noticing parts of his body jerk. He occasionally kicks during the night. He denies having crawling and aching feelings in his legs and denies having leg pain during the night. He denies grinding his teeth during sleep and denies awakening with morning jaw pain. He is frequently bothered by pain during the day and occasionally awakened by pain during the night. He occasionally wakes up feeling stiff in the morning. He occasionally wakes up with sore or achy muscles. He occasionally wakes up with pain in the neck, spine and other joints. He goes to bed at 10:00 p.m. on weekdays and between 11:00 p.m. to 12:00 a.m. on the weekends. It takes him less than 30 minutes to fall asleep. He wakes up 2-3 times throughout the night to let his dogs out, urinate or get a drink. He is able to fall back asleep within 5-10 minutes. He wakes up between 7:00 a.m. on weekdays and between 9-10 a.m. on the weekends. He typically gets 8-10 hours of sleep per night. He will stay in bed for 30 minutes after waking up in the morning. He currently lives with his . He denies consuming any caffeinated beverages within 2 hours of bedtime. He denies engaging in physical exercise before bedtime. He will watch television before falling asleep. He will take naps in the afternoon or the evening and they are refreshing. He consumes 2 cups of coffee and 3-4 sodas per day. He will have 1-2 alcoholic beverages at most per day. He quit smoking cigarettes over 5 years ago. He denies recreational drug use. Sleep Procedure A full night split study using the [employer] multi-channel system recorded the standard physiologic parameters including EEG, EOG, submentalis EMG, anterior tibialis EMG, EKG, body position, nasal and oral airflow using nasal pressure sensor and thermistor.? Respiratory parameters of chest and abdominal movements were recorded with Respiratory Inductance Plethysmography belts. Oxygen saturation was recorded by pulse oximetry. Video monitoring was also performed. Sleep stages, periodic limb movements, and EEG arousals were scored in 30 second epochs according to the criteria of the AASM Scoring Manual. The Apnea-Hypopnea Index was calculated using [facility] guidelines for definition of hypopnea with 4% O2 desaturations while scoring respiratory events. Sleep Architecture During the diagnostic portion of the study, the total recording time was 266.1 minutes. The total sleep time was 167.5 minutes. Sleep latency was 61.6 minutes.? REM sleep was not achieved during this portion of the study. Sleep Efficiency was 62.9%. The patient had 19 awakenings for an awakening index of 6.8. Wake after sleep onset time was 37.0 minutes. The patient spent 23.5 minutes, 14.0% of total sleep time in Stage N1. The patient spent 111.5 minutes, 66.6% in Stage N2. The patient spent 32.5 minutes, 19.4% in Stage N3. The patient spent 0.0 minutes, 0.0% in Stage REM sleep. At 03:07:33 AM the patient was placed on PAP treatment and was titrated at pressures ranging from 5 cm H20 up to 13 cm H20. During the treatment portion of the study, the total recording time was 176.4 minutes.? The total sleep time was 139.5 minutes. Sleep latency was 26.5 minutes. REM latency was 116.5 minutes. Sleep Efficiency was 79.1%. Wake after Sleep Onset time was 10.5 minutes. The patient spent 21.5 minutes, 15.4% of total sleep time in Stage N1. The patient spent 65.5 minutes, 47.0% in Stage N2. The patient spent 23.5 minutes, 16.8% in Stage N3. The patient spent 29.0 minutes, 20.8% in Stage REM. Respiratory Analysis During the diagnostic portion of the study, the patient had 111 hypopneas and 38 obstructive apneas for an overall Apnea Hypopnea Index of 53.0 events per hour. The REM Apnea Hypopnea Index was 0. The NREM Apnea Hypopnea Index was 53.0. The patient had a Central Apnea Hypopnea Index of 0. There was no evidence of Ángel-Barragan Respirations. During the treatment portion of the study, the patient had 23 hypopneas, 1 obstructive apnea and 29 central apneas for an overall Apnea Hypopnea Index of 22.8 events per hour. The REM Apnea Hypopnea Index was 10.3. The NREM Apnea Hypopnea Index was 26.1. The patient had a Central Apnea Hypopnea Index of 12.5. There was no evidence of Ángel-Barragan Respirations. The patient was started on CPAP 5 cm H2O and titrated to CPAP 13 cm H2O. The patient was able to fall asleep starting on CPAP 6 cm H2O. The patient was able to achieve REM sleep starting on CPAP 12 cm H2O. The patient was able to achieve a residual AHI of 11.3 on the final pressure setting. On CPAP 13 cm H2O, the patient spent 4 minutes in NREM and 28 minutes in REM with 1 central apnea and 5 hypopneas, resulting in an AHI of 11.3. The patient had a sleep efficiency of 98.5% on this pressure setting. Arousals During the diagnostic portion of the study, there were a total of 103 arousals for an arousal index of 36.9.? There were 9 respiratory arousals for an index of 3.2. There were 3 periodic limb movement arousals for an index of 1.1.? There were 3 isolated limb movement arousals for an index of 1.1. There were 88 spontaneous arousals for an index of 31.5. During the treatment portion of the study, there were a total of 53 arousals for an index of 22.8.? There were 9 respiratory arousals for an index of 3.9. There were 2 periodic limb movement arousals for an index of 0.9.? There were 2 isolated limb movement arousals for an index of 0.9. There were 40 spontaneous arousals for an index of 17.2. Periodic Limb Movements During the diagnostic portion of the study, the patient had 22 isolated limb movements with an index of 7.9. The patient had 10 periodic limb movements with an index of 3.6. The patient had a total of 32 limb movements with a total limb movement index of 11.5. During the treatment portion of the study, the patient had 14 isolated limb movements with an index of 6.0. The patient had 44 periodic limb movements with an index of 18.9, which is elevated (normal <15). The patient had a total of 58 limb movements with a total limb movement index of 24.9. Oximetry Data During the diagnostic portion of the study, the patient had an average oxygen saturation of 94% in wake with a minimum oxygen saturation of 85% and a maximum oxygen saturation of 99%. The patient had an average oxygen saturation of 91.6% in sleep with a minimum oxygen saturation of 82.0% and a maximum oxygen saturation of 98.0%. The patient had 187 oxygen desaturations resulting in an Oxygen Desaturation Index of 67.0. The patient spent 13.1 minutes, 4.9% of total sleep time with an oxygen saturation less than 88%. During the treatment portion of the study, the patient had an average oxygen saturation of 96.1% in wake with a minimum oxygen saturation of 86.0% and a maximum oxygen saturation of 98.0%. The patient had an average oxygen saturation of 92.3% in sleep with a minimum oxygen saturation of 86.0% and a maximum oxygen saturation of 97.0%. The patient had 51 oxygen desaturations resulting in an Oxygen Desaturation Index of 21.9. The patient spent 0.8 minutes, 0.5% of total sleep time with an oxygen saturation less than 88%. Snoring Profile Moderate snoring was present in the baseline portion of the study. The snoring resolved once the patient was titrated to CPAP 11 cm H2O. Cardiac Profile The EKG lead showed normal sinus rhythm. No arrhythmias or premature beats were seen. During the diagnostic portion of the study, the average pulse rate was 69.3 bpm.? The minimum pulse rate was 59.0 bpm. The maximum pulse rate was 98.0 bpm. During the treatment portion of the study, the average pulse rate was 63.4 bpm.? The minimum pulse rate was 52.0 bpm. The maximum pulse rate was 95.0 bpm. EEG Profile No signs of seizure activity seen. Assessment and Plan Assessment and Plan (1) DAQUAN (obstructive sleep apnea): Code(s): G47.33 - Obstructive sleep apnea (adult) (pediatric) Status: Acute Assessment and Plan: In the diagnostic portion of the study, the patient had an overall AHI of 53.0 with desaturation down to 82%. This is consistent with severe sleep apnea. The patient was started on CPAP 5 cm H2O and titrated to CPAP 13 cm H2O. I recommend that the patient be prescribed CPAP 13 cm H2O, size medium F7P Solo nasal mask, CPAP filters/heated tubing and heated humidity. This should be used with all episodes of sleep.? Compliance should be reviewed within 31-90 days of starting therapy for usage greater than 4 hours per night greater than 70% of the nights. The patient should be asked about symptoms such as?excessive daytime sleepiness, quality of sleep, decreased nocturia, increased?mental functioning such as memory, mood, and concentration. Data The data obtained during this sleep study is adequate for interpretation. Certification This sleep study has been reviewed by a board certified sleep medicine physician.
[2025-03-31 15:26] VITALS: BMI 38.2
== END 2025-02-25 06:44 | disposition home or self-care (01) ==
PROVIDERS: PCP Internal Medicine; Visit Provider Internal Medicine
DX: G47.33 Obstructive sleep apnea (adult) (pediatric) (principal)
CPT/HCPCS: 95811